=== PATIENT | female | born 1955 | race Caucasian/White ===

== ENCOUNTER → 2017-02-23 | Day surgery (SDC) | payer BC ==
[~2017-02-23] MED LIST: ACETAMINOPHEN 1000 MG/100 ML 100 ML IV ONE; ACETAMINOPHEN/HYDROcodone 325 MG/5 MG TAB ONE; ARTH650T6 PO; ASPI-110 PO; CALC600T25 PO; CELE10TA PO; IBUP800T23 PO; ISOSULFAN BLUE 50 MG/5 ML VIAL SQ ONE; LACTATED RINGER'S 1000 ML INJ 1,000 ML ONE; LEVO137T2 PO; LIDOCAINE 1%/EPINEPHrine 1:200,000 PF SOLN 30 ML VIAL ONE; MEPERIDINE HCL 25 MG/ML VIAL ONE; MIDAZOLAM HCL 2 MG/2 ML VIAL ONE; MONT10TA2 PO; MULT1TAB46 PO; ONDANSETRON HCL 4 MG/2 ML VIAL IV PUSH ONE; PRIL20TA2 PO; PROPOFOL 200 MG/20 ML AMP IV ONE; REST30CA PO; SODIUM CHLOR 0.9% 250 ML BAG IV ONE; VANCOMYCIN HCL 1000 MG VIAL ONE; VITA2000 PO
--- NOTE | 2017-02-25 13:12 | MP ---
cc: BANDAR LAINEZ M.D., RONALD J. M.D. GIERBOLINI, JOSE DATE OF SURGERY: 02/25/2017. PREOPERATIVE DIAGNOSIS: DCIS right breast. POSTOPERATIVE DIAGNOSIS: DCIS right breast. OPERATIVE PROCEDURE PERFORMED: 1. Injection Lymphazurin Blue dye. 2. Intraoperative localization and excision of sentinel lymph nodes right axilla x2. 3. Needle-localized wide local excision, right breast. SURGEON: Bandar Lainez MD. ANESTHESIA: LMA. ESTIMATED BLOOD LOSS: 30 mL. FLUIDS: 750 mL crystalloid. COMPLICATIONS: None. DRAINS: None. SPECIMEN: Right axillary sentinel lymph nodes x2 and right breast needle-localized lumpectomy specimen to pathology. DESCRIPTION OF THE PROCEDURE IN DETAIL: The patient was seen in the department of nuclear medicine where she underwent injection with Tc-99 sulfur colloid as well as needle localization of the patient's previously placed microclip. She was then re-imaged in nuclear medicine where lymphoscintigraphy failed to reveal sentinel lymph nodes. The patient was then brought to the operating room where she was placed on the operating table in the supine position. After an adequate level of laryngeal mask anesthesia was instituted, the breast was prepped and 3 cc of Lymphazurin Blue dye was injected into the retroareolar and peritumoral region. The breast was gently compressed for approximately 5 minutes. This was performed after a time-out was taken confirming the correct patient, site and procedure to be performed. Skin and subcutaneous tissue was infiltrated with local anesthetic in the axilla and incision made in the axillary crease. Dissection was carried down to where blue channels were seen near the chest wall, and when this was noted, the channels were traced to two lymph nodes deep in the axilla. These nodes had activity above background and both were excised with electrocautery. After removal, the axilla was reexamined with palpation and with the probe. No activity above background and no suspicious nodes by palpation were noted. The wound was reexamined, made hemostatic with electrocautery and then closed in two layers with interrupted 3-0 Vicryl suture and 5-0 PDS in a running subcuticular fashion. The wound was toweled off. Attention was turned to the breast. A circumareolar incision was made midway between the nipple-areolar complex and the needle insertion site and carried out laterally to the needle. The needle was cut at the skin and brought into the wound. The incision was from approximately the 9 o'clock to 12 o'clock position on the breast. A core of tissue was removed including around the needle. Dissection was carried down to the chest wall. A core of tissue approximating a sphere was removed and oriented with silk sutures. The wound was then made hemostatic with meticulous use of electrocautery. As this was being completed, the radiologist confirmed that the lesion in question had been removed and was present with an adequate margin of tissue around it. The wound was then closed in two layers with interrupted 3-0 Vicryl suture and 5-0 PDS in a running subcuticular fashion. Both wounds were dressed with Steri-Strips. The patient was extubated and taken back to the recovery room in stable condition. Sponge, needle and instrument counts were reported to be correct. MD ZARA Carrera/DANNIELLE /12:59 PM /1:00 PM
== END | disposition home or self-care (01) ==
LOC: ESDC 06:49
PROVIDERS: ATTEND Surgery Trauma Surgery
DX: D05.11 Intraductal carcinoma in situ of right breast (principal)
CPT/HCPCS: 00400; 01610; 19125; 38525; 38792; 88307; J0131; J2175; J2250; J2405; J3010; J3370; J7050; J7120; Q9968